=== PATIENT | male | born 1960 | race Caucasian/White ===

== ENCOUNTER 2016-09-23 18:26 | Emergency (ER) | payer MEDICAID ==
[2014-10-23 06:59] VITALS: BMI 28.1
[~2016-09-23 18:26] MED LIST: PLAVIX75 MG PO
== END 2016-09-23 21:02 | disposition home or self-care (01) ==
LOC: D.ER 18:26
DX: M54.2 Cervicalgia (principal); M54.12 Radiculopathy, cervical region

== ENCOUNTER 2016-10-08 09:56 | Emergency (ER) | payer MEDICAID ==
[2014-10-23 06:59] VITALS: BMI 28.1
== END 2016-10-08 12:25 | disposition home or self-care (01) ==
LOC: D.ER 09:56
DX: M54.12 Radiculopathy, cervical region (principal); M50.30 Other cervical disc degeneration, unspecified cervical region; S16.1XXA Strain of muscle, fascia and tendon at neck level, initial encounter; X58.XXXA Exposure to other specified factors, initial encounter; Y93.89 Activity, other specified; Y92.9 Unspecified place or not applicable; Y99.9 Unspecified external cause status; F17.200 Nicotine dependence, unspecified, uncomplicated; I10 Essential (primary) hypertension

== ENCOUNTER 2016-10-22 01:27 | Emergency (ER) | payer MEDICAID ==
[2014-10-23 06:59] VITALS: BMI 28.1
== END 2016-10-22 02:22 | disposition home or self-care (01) ==
LOC: D.ER 01:27
DX: S16.1XXA Strain of muscle, fascia and tendon at neck level, initial encounter (principal); V43.52XA Car driver injured in collision with other type car in traffic accident, initial encounter; Y93.89 Activity, other specified; Y92.410 Unspecified street and highway as the place of occurrence of the external cause; S29.012A Strain of muscle and tendon of back wall of thorax, initial encounter; I10 Essential (primary) hypertension; F17.200 Nicotine dependence, unspecified, uncomplicated

== ENCOUNTER 2016-11-13 05:31 | Emergency (ER) | payer MEDICAID ==
[2014-10-23 06:59] VITALS: BMI 28.1
== END 2016-11-13 06:43 | disposition home or self-care (01) ==
LOC: D.ER 05:31
DX: L02.414 Cutaneous abscess of left upper limb (principal); R50.9 Fever, unspecified; I10 Essential (primary) hypertension

== ENCOUNTER 2016-12-27 18:12 | Emergency (ER) | payer MEDICAID ==
[2014-10-23 06:59] VITALS: BMI 28.1
== END 2016-12-27 19:38 | disposition home or self-care (01) ==
LOC: D.ER 18:12
DX: S61.211A Laceration without foreign body of left index finger without damage to nail, initial encounter (principal); S61.213A Laceration without foreign body of left middle finger without damage to nail, initial encounter; W29.8XXA Contact with other powered hand tools and household machinery, initial encounter; Y93.89 Activity, other specified; Y92.019 Unspecified place in single-family (private) house as the place of occurrence of the external cause; I10 Essential (primary) hypertension; F17.200 Nicotine dependence, unspecified, uncomplicated

== ENCOUNTER 2017-01-21 14:37 | Emergency (ER) | payer MEDICAID ==
[2014-10-23 06:59] VITALS: BMI 28.1
== END 2017-01-21 17:30 | disposition home or self-care (01) ==
LOC: D.ER 14:37
DX: S61.211A Laceration without foreign body of left index finger without damage to nail, initial encounter (principal); W26.9XXA Contact with unspecified sharp object(s), initial encounter; Y93.89 Activity, other specified; Y92.029 Unspecified place in mobile home as the place of occurrence of the external cause; I10 Essential (primary) hypertension

== ENCOUNTER 2017-02-07 11:41 | Emergency (ER) | payer MEDICAID ==
[2014-10-23 06:59] VITALS: BMI 28.1
== END 2017-02-07 12:10 | disposition left against medical advice (07) ==
LOC: D.ER 11:41
DX: Z02.9 Encounter for administrative examinations, unspecified (principal)

== ENCOUNTER 2017-03-27 03:18 | Emergency (ER) | payer MEDICAID ==
[2014-10-23 06:59] VITALS: BMI 28.1
== END 2017-03-27 03:50 | disposition home or self-care (01) ==
LOC: D.ER 03:18
DX: M25.512 Pain in left shoulder (principal); I10 Essential (primary) hypertension; F17.200 Nicotine dependence, unspecified, uncomplicated

== ENCOUNTER 2018-11-01 18:54 | Emergency (ER) | payer MEDICAID ==
[~2018-11-01] VITALS: Ht 172.7 cm; Wt 84.1 kg
[2018-11-01 19:12] VITALS: Ht 172.7 cm; Wt 84.1 kg
[2018-11-01] MEDS ORDERED: CLEOCIN HCL300 MG PO (21:42)
[2018-11-01] MEDS ORDERED: VOLTAREN75 MG PO (21:42)
[2018-11-01] MEDS ORDERED: TYLENOL W/CODEI1 TAB PO (21:42)
[2018-11-01 22:22] VITALS: BP 150/91
== END 2018-11-01 22:22 | disposition home or self-care (01) ==
LOC: D.ER 18:54
DX: S51.852A Open bite of left forearm, initial encounter (principal); S61.052A Open bite of left thumb without damage to nail, initial encounter; W54.0XXA Bitten by dog, initial encounter; Y93.89 Activity, other specified; Y92.830 Public park as the place of occurrence of the external cause

== ENCOUNTER 2019-12-31 02:47 | Emergency (ER) | payer MEDICAID ==
[~2019-12-31] VITALS: Ht 172.7 cm; Wt 86.4 kg
[~2019-12-31 02:47] MED LIST changes: +CLEOCIN HCL300 MG PO; +TYLENOL W/CODEI1 TAB PO; +VOLTAREN75 MG PO
[2019-12-31 02:52] VITALS: Ht 172.7 cm; Wt 86.4 kg
[2019-12-31] MEDS ORDERED: GABAPENTIN100 MG PO (02:55)
[2019-12-31 03:07] LABS: BASOPHILS 0.2 % (0-2); EOSINOPHILS 5.3 % (0-7); HEMATOCRIT 41.1 % (42.0-54.0); HEMOGLOBIN 13.5 g/dL (13.5-17.5); LYMPHOCYTES 36.6 % (15-50); MCH 30.5 pg (26.0-34.0); MCHC 32.8 g/dL (31.0-37.0); MCV 92.8 fL (80.0-100.0); MEAN PLATELET VOLUME 8.7 fL (7.4-10.4); MONOCYTES 4.9 % (2-11); RBC 4.43 10x6/uL (4.20-6.10); RDW 13.3 % (11.5-14.5); WBC 8.4 10x3/uL (4.8-10.8)
[2019-12-31 03:10] LABS: PLATELET COUNT 297 10x3/uL (130-400)
[2019-12-31 03:25] LABS: CALC OSMOLALITY 278 mosm/kg (275-300); CALCIUM 8.9 mg/dL (8.5-10.1); CARBON DIOXIDE 27.8 mmol/L (21.0-32.0); CHLORIDE - SERUM 104 mmol/L (98-107); CREATININE - SERUM 1.6 mg/dL (0.6-1.3); GLUCOSE 115 mg/dL (74-106); POTASSIUM - SERUM 3.7 mmol/L (3.5-5.1); SODIUM 138 mmol/L (136-145); UREA NITROGEN 18 mg/dL (7-18); eGFR NON AFRICAN AMERICAN 48 mL/min (90-120)
[2019-12-31 03:35] LABS: ALBUMIN 3.4 g/dL (3.4-5.0); ALKALINE PHOSPHATASE 82 U/L (30-120); ALT (SGPT) 23 U/L (10-68); TROPONIN-I < 0.017 ng/mL (0.000-0.060)
[2019-12-31] MEDS ORDERED: ULTRAM50 MG PO (06:37)
[2019-12-31 07:53] VITALS: BP 168/82
== END 2019-12-31 07:53 | disposition home or self-care (01) ==
LOC: D.ER 02:47
PROVIDERS: Emergency Medicine
DX: R07.89 Other chest pain (principal); I10 Essential (primary) hypertension; Z72.0 Tobacco use